=== PATIENT | female | born 1950 | race African-American/Black ===

== ENCOUNTER 2024-04-26 15:22 | Emergency (ER) | payer MEDICARE, MEDICAID ==
[~2024-04-26] VITALS: Ht 167.6 cm; Wt 81.0 kg
[~2024-04-26 15:22] MED LIST: ASPI-1497 PO; CLOP75TA33 PO; METO-396 PO; SIMV-43 PO
[2024-04-26 15:44] VITALS: TEMP 98.1; O2SAT 100
[2024-04-26] MEDS ORDERED: HYDR453.3 TP (19:11)
[2024-04-26 19:25] VITALS: BP 209/77; PULSE 80; RESP 15; O2SAT 100
== END 2024-04-26 19:31 | disposition home or self-care (01) ==
LOC: ER 15:22
DX: L53.9 Erythematous condition, unspecified (principal); I25.2 Old myocardial infarction; I10 Essential (primary) hypertension; Z88.0 Allergy status to penicillin
CPT/HCPCS: 99282